=== PATIENT | female | born 1950 | race Two or more races ===

== ENCOUNTER 2024-04-28 20:56 | Inpatient (IN) | payer OTHER ==
[~2024-04-28] VITALS: Ht 175.3 cm; Wt 83.6 kg
[2024-04-28] MEDS: ADENOSINE 6 MG/2 ML INJ IV ONE (21:28)
[2024-04-28] MEDS ORDERED: ADENOSINE 6 MG/2 ML INJ IV ONE (21:30)
[2024-04-28] MEDS ORDERED: dilTIAZem 125mg/125ml BAG KIT 125 ML IV ONE (21:45)
[2024-04-28] MEDS ORDERED: dilTIAZem HCL 60 MG TAB GT ONE (21:45)
[2024-04-28] MEDS: SODIUM CHLORIDE 0.9% 1,000 ML IV ONE (21:49)
[2024-04-28] MEDS: dilTIAZem 25 MG/5 ML VIAL IV ONE ×2 (21:49→21:50)
[2024-04-28 21:50] LABS: Basophils # (auto) 0.1 10 ^3/uL (0-0.2); Basophils % (auto) 0.6 % (0.0-2.0); Eosinophils # (auto) 0.1 10 ^3/uL (0-0.8); Eosinophils % (auto) 0.7 % (0.0-7.0); Hematocrit 49.1 % (36.0-46.0); Hemoglobin 16.6 g/dL (12.2-16.2); Lymphocytes # (auto) 2.1 10 ^3/uL (0.4-5.4); Lymphocytes % (auto) 23.9 % (10.0-50.0); Mean Corpuscular Hemoglobin 30.3 pg (28.0-32.0); Mean Corpuscular Hgb Conc. 33.8 g/dL (32.0-36.0); Mean Corpuscular Volume 89.7 fL (80.0-100.0); Monocytes # (auto) 1.5 10 ^3/uL (0-1.3); Monocytes % (auto) 16.7 % (0.0-12.0); Neutrophils % (auto) 58.1 % (37.0-80.0); Nucleated Red Blood Cells % 0.2 %; Red Blood Cells 5.48 10^6/uL (4.0-5.20); Red Cell Distribution Width 13.4 % (11.8-14.3); White Blood Cell 8.7 10^3/uL (4.4-10.8)
[2024-04-28] MEDS: dilTIAZem 120MG ER CAP PO ONE (21:53)
[2024-04-28 22:00] LABS: Alanine Aminotransferase 39 U/L (7-40); Albumin 4.3 g/dL (3.2-4.8); Alkaline Phosphatase 118 U/L (46-116); Anion Gap 13 (5-15); Aspartate Aminotransferase 32 U/L (13-40); Blood Urea Nitrogen 17 mg/dL (9-23); Calcium 11.3 mg/dL (8.7-10.4); Carbon Dioxide 23 mmol/L (20-30); Chloride 102 mmol/L (98-107); Glucose 190 mg/dL (74-106); Potassium 3.4 mmol/L (3.5-5.1); Sodium 138 mmol/L (136-145)
[2024-04-28 22:01] LABS: Bilirubin, Total 0.6 mg/dL (0.2-1.0); Total Protein 7.3 g/dL (5.7-8.2)
[2024-04-28 22:04] LABS: INR 1.07 (0.9-1.15); Prothrombin Time 11.3 sec (9.3-11.8)
[2024-04-28 23:00] VITALS: PULSE 138; RESP 19; O2SAT 97
[2024-04-28] MEDS: dilTIAZem 125mg/125ml BAG KIT 125 ML IV ONE (23:10)
[2024-04-29 01:04] LABS: Urine Bacteria None Seen /hpf (None Seen)
[2024-04-29 01:14] LABS: Urine Blood Negative /uL (Negative); Urine Clarity Clear (Clear); Urine Color Yellow (Yellow); Urine Hyaline Cast FEW /lpf (0 - 2); Urine Protein, UAD TRACE (Negative); Urine Specific Gravity 1.027 (1.001-1.035); Urine Urobilinogen Normal (Negative); Urine WBC 4 /hpf (0 - 5); Urine pH 5.5 (5.0-9.0)
[2024-04-29 07:27] VITALS: PULSE 128; RESP 19; O2SAT 95
[2024-04-29] MEDS ORDERED: ACETAMINOPHEN 325 MG TAB PO PRN (15:00)
[2024-04-29] MEDS ORDERED: NITROGLYCERIN 0.4 MG SL TAB SL PRN ×2 (15:00)
[2024-04-29] MEDS ORDERED: DEXTROSE (50%) 50ML SYRG IV PRN (15:00)
[2024-04-29] MEDS ORDERED: ONDANSETRON HCL 4 MG/2 ML VIAL IV PRN (15:00)
[2024-04-29] MEDS ORDERED: MORPHINE SULFATE 4 MG/ML SYR/VIAL IV PRN (15:00)
[2024-04-29] MEDS: ASPirin 81 mg TAB PO ONE (15:15)
[2024-04-29] MEDS: POTASSIUM EFFERVESENT TAB 25 MEQ PO ONE (15:16)
[2024-04-29] MEDS: InsuLIN REG 1unit/0.01ml Soln (100units/ml) SC SCH ×2 (15:25→22:23)
[2024-04-29] MEDS: ACCU-CHEK COMFORT CURVE STRIP VI SCH (15:25)
[2024-04-29 15:43] LABS: Basophils # (auto) 0.1 10 ^3/uL (0-0.2); Basophils % (auto) 1.1 % (0.0-2.0); Eosinophils # (auto) 0.1 10 ^3/uL (0-0.8); Hematocrit 42.9 % (36.0-46.0); Hemoglobin 14.5 g/dL (12.2-16.2); Lymphocytes # (auto) 1.5 10 ^3/uL (0.4-5.4); Lymphocytes % (auto) 26.5 % (10.0-50.0); Mean Corpuscular Hemoglobin 30.1 pg (28.0-32.0); Mean Corpuscular Hgb Conc. 33.8 g/dL (32.0-36.0); Mean Corpuscular Volume 88.8 fL (80.0-100.0); Monocytes # (auto) 0.9 10 ^3/uL (0-1.3); Monocytes % (auto) 16.5 % (0.0-12.0); Neutrophils % (auto) 54.9 % (37.0-80.0); Nucleated Red Blood Cells % 0.2 %; Red Blood Cells 4.83 10^6/uL (4.0-5.20); Red Cell Distribution Width 13.1 % (11.8-14.3); White Blood Cell 5.5 10^3/uL (4.4-10.8)
[2024-04-29 17:00] LABS: INR 1.07 (0.9-1.15); Prothrombin Time 11.5 sec (9.3-11.8)
[2024-04-29] MEDS: METOPROLOL SUCCINATE XL 50 MG TAB PO ONE (17:00)
[2024-04-29 17:01] LABS: Chloride 106 mmol/L (98-107); Potassium 3.2 mmol/L (3.5-5.1); Sodium 140 mmol/L (136-145)
[2024-04-29 17:02] LABS: Anion Gap 9 (5-15); Calcium 10.5 mg/dL (8.7-10.4); Carbon Dioxide 25 mmol/L (20-30)
[2024-04-29 17:07] LABS: BUN/Creatinine Ratio 26.2 (10.0-20.0); Blood Urea Nitrogen 16 mg/dL (9-23); Glucose 247 mg/dL (74-106); Triglycerides 174 mg/dL (< 150)
[2024-04-29 17:08] LABS: LDL Cholesterol 58 mg/dL (< 100)
[2024-04-29 17:09] LABS: Cholesterol 114 mg/dL (< 200); HDL Cholesterol 25 mg/dL (40-59)
[2024-04-29] MEDS: MAGNESIUM SULFATE 1GM/100ML 100 ML IV SCH (17:13)
[2024-04-29 20:44] LABS: Amphetamine Screen, Urine Neg (NEGATIVE); Barbiturate Scree,Urine Neg (NEGATIVE); Benzodiazephine Screen, Urine Neg (NEGATIVE); Cannabinoid Screen, Urine Neg (NEGATIVE); Cocaine Screen, Urine Neg (NEGATIVE); Opiate Scree,Urine Neg (NEGATIVE); Phencyclidine Screen, Urine Neg (NEGATIVE)
[2024-04-29 20:55] VITALS: PULSE 103; RESP 16; O2SAT 94
[2024-04-29] MEDS: ATORVASTATIN 20 MG TAB PO SCH (22:21)
[2024-04-29] MEDS: ENOXAPARIN SOD 80 MG/0.8ML SYRINGE SC SCH (22:25)
[2024-04-30 03:41] LABS: Basophils # (auto) 0.3 10 ^3/uL (0-0.2); Basophils % (auto) 4.6 % (0.0-2.0); Eosinophils # (auto) 0.1 10 ^3/uL (0-0.8); Hematocrit 42.8 % (36.0-46.0); Hemoglobin 14.2 g/dL (12.2-16.2); Lymphocytes # (auto) 1.4 10 ^3/uL (0.4-5.4); Lymphocytes % (auto) 23.4 % (10.0-50.0); Mean Corpuscular Hemoglobin 29.5 pg (28.0-32.0); Mean Corpuscular Hgb Conc. 33.3 g/dL (32.0-36.0); Mean Corpuscular Volume 88.4 fL (80.0-100.0); Monocytes # (auto) 0.7 10 ^3/uL (0-1.3); Monocytes % (auto) 12.5 % (0.0-12.0); Neutrophils # (auto) 3.3 10 ^3/uL (1.6-8.6); Neutrophils % (auto) 57.5 % (37.0-80.0); Nucleated Red Blood Cells % 0.2 %; Red Blood Cells 4.84 10^6/uL (4.0-5.20); Red Cell Distribution Width 13.3 % (11.8-14.3); White Blood Cell 5.8 10^3/uL (4.4-10.8)
[2024-04-30 03:52] LABS: Chloride 107 mmol/L (98-107); Potassium 3.3 mmol/L (3.5-5.1); Sodium 143 mmol/L (136-145)
[2024-04-30 03:53] LABS: Anion Gap 8 (5-15); Calcium 10.8 mg/dL (8.7-10.4); Carbon Dioxide 28 mmol/L (20-30)
[2024-04-30 03:58] LABS: BUN/Creatinine Ratio 31.3 (10.0-20.0); Blood Urea Nitrogen 15 mg/dL (9-23); Glucose 147 mg/dL (74-106); Triglycerides 126 mg/dL (< 150)
[2024-04-30 03:59] LABS: LDL Cholesterol 55 mg/dL (< 100); Magnesium 1.7 mg/dL (1.6-2.6)
[2024-04-30 04:00] LABS: Cholesterol 108 mg/dL (< 200); HDL Cholesterol 27 mg/dL (40-59)
[2024-04-30] MEDS: POTASSIUM EFFERVESENT TAB 25 MEQ PO ONE (08:15)
[2024-04-30] MEDS: MAGNESIUM SULFATE 1GM/100ML 100 ML IV ONE (08:16)
[2024-04-30] MEDS: POTASSIUM CHLORIDE 20 MEQ, LIDOCAINE 1% (LOCAL ANESTH.) 2 ML in SODIUM CHL 0.9% 100 ML IV ONE (08:49)
[2024-04-30 09:04] VITALS: PULSE 133; RESP 18; O2SAT 95
[2024-04-30] MEDS ORDERED: ASPirin 81 mg TAB PO SCH (10:00)
[2024-04-30 10:37] VITALS: BP 119/76; PULSE 69; RESP 20; TEMP 98.2; O2SAT 96
[2024-04-30] MEDS: DOCUSATE SOD 100 MG CAP PO SCH (11:50)
[2024-04-30] MEDS: METOPROLOL SUCCINATE XL 50 MG TAB PO SCH (11:50)
[2024-04-30] MEDS: NICOTINE 14 MG/24HR TOPICAL PATCH TD SCH (11:51)
[2024-04-30 12:30] VITALS: PULSE 128; RESP 20; O2SAT 95
[2024-04-30 13:00] VITALS: BP 133/68; PULSE 149; RESP 20; TEMP 97.9; O2SAT 95
[2024-04-30 14:30] LABS: T3 Total 4.9 ng/mL (0.60-1.81)
[2024-04-30 14:31] LABS: Free T4 (Free Thyroxine) 4.83 ng/dL (0.89-1.76)
[2024-04-30] MEDS ORDERED: LISI20TA56 PO (16:29)
[2024-04-30] MEDS ORDERED: ATOR40TA52 PO (16:29)
[2024-04-30] MEDS ORDERED: GLIP5TAB21 PO (16:29)
[2024-04-30] MEDS ORDERED: METF-370 PO (16:29)
[2024-04-30] MEDS ORDERED: TRIA75TA55 PO (16:29)
[2024-04-30] MEDS ORDERED: AMLO1TAB22 PO (16:31)
[2024-04-30] MEDS ORDERED: EMPA1TAB PO (16:31)
[2024-04-30 17:00] VITALS: BP 114/73; PULSE 76; RESP 18; TEMP 97.9; O2SAT 96
[2024-04-30] MEDS ORDERED: METO-6 PO (18:26)
[2024-04-30] MEDS ORDERED: APIX5TAB PO (18:26)
[2024-04-30] MEDS ORDERED: METH-552 PO (18:29)
[2024-04-30 19:39] VITALS: BP 114/73; PULSE 76; RESP 18; TEMP 97.9; O2SAT 96
[2024-04-30] MEDS ORDERED: APIXABAN 5 MG TAB PO SCH (22:00)
== END 2024-04-30 20:45 | disposition home health service (06) | DRG 309 ==
LOC: ER 20:56 → OVERFLOW 04-29 14:56 → TELE-CENTR 04-30 10:29
PROVIDERS: ADMIT Nurse Practitioner Family; ATTEND Internal Medicine
DX: I48.91 Unspecified atrial fibrillation (principal); I50.32 Chronic diastolic (congestive) heart failure; E87.6 Hypokalemia; I10 Essential (primary) hypertension; E78.5 Hyperlipidemia, unspecified; E05.90 Thyrotoxicosis, unspecified without thyrotoxic crisis or storm; E83.42 Hypomagnesemia; J45.909 Unspecified asthma, uncomplicated; F17.210 Nicotine dependence, cigarettes, uncomplicated; I47.10 Supraventricular tachycardia, unspecified; E11.9 Type 2 diabetes mellitus without complications; Z79.01 Long term (current) use of anticoagulants
CPT/HCPCS: 36415; 70450; 71045; 80048; 80053; 80061; 80307; 81001; 82962; 83036; 83735; 84439; 84443; 84480; 84484; 85025; 85610; 85730; 93005; 93306; 96365; 96375; 99291; G0378; J0153; J1815; J2001